=== PATIENT | female | born 1970 | race Caucasian/White ===

== ENCOUNTER 2019-01-19 11:01 | Emergency (ER) | payer SELFPAY ==
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
[2019-01-19 12:02] LABS: ABSOLUTE NEUTROPHIL COUNT 2.33; BASO % 0.6 % (0-6); EOS % 6.7 % (0-6); GRAN % 47.7 % (47-80); HEMATOCRIT 31.8 % (35.0-47.0); HEMOGLOBIN 9.5 gm/dl (11.6-16.0); MEAN CELL VOLUME 97.2 fl (81-97); MEAN CORPUSCULAR HGB CONC 29.9 g/dl (32-36); PLATELET COUNT 442 K/uL (130-400); RED BLOOD COUNT 3.27 M/uL (3.80-5.40); RED CELL DISTRIBUTION WIDTH 16.4 % (11.5-14.5); WHITE BLOOD COUNT W/O DIFF 4.9 K/uL (4.2-12.2)
[2019-01-19 12:11] LABS: PARTIAL THROMBOPLASTIN TIME 23.8 SECONDS (24.5-39.1); PROTHROMBIN TIME (PATIENT) 9.9 SECONDS (9.5-12.1)
[2019-01-19 12:24] LABS: BLOOD UREA NITROGEN 7 mg/dL (6-20); CREATININE 0.5 mg/dL (0.5-0.9); EST GLOMERULAR FILTRATION RATE > 60 mL/min
[2019-01-19 12:27] LABS: GLUCOSE,RANDOM 97 mg/dL (74-109)
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
== END 2019-01-19 13:07 | disposition home or self-care (01) ==
LOC: ER 11:01
DX: S22.41XD Multiple fractures of ribs, right side, subsequent encounter for fracture with routine healing (principal); R07.9 Chest pain, unspecified; R10.11 Right upper quadrant pain; I10 Essential (primary) hypertension; V29.9XXD Motorcycle rider (driver) (passenger) injured in unspecified traffic accident, subsequent encounter
CPT/HCPCS: 71275; 80048; 85025; 85610; 85730; 99283; 99284